=== PATIENT | female | born 1980 | race Caucasian/White ===

== ENCOUNTER → 2018-07-07 12:45 | Outpatient (CLI) | payer OTHER, MEDICAID, SELFPAY ==
--- NOTE | 2018-07-07 | DI.US.S_ITS ---
PROCEDURE: US OB LIMITED INDICATIONS: recheck kidneys OUTSIDE/PRIOR DATING DATA: First dating scan (date and location): None. Estimated date of delivery (BRYCE) from first dating scan: 09/02/18. TECHNIQUE: Real-time scanning was performed of the fetus, with image documentation. Endovaginal scanning: No COMPARISON: None. FINDINGS: A single living intrauterine gestation is present. Presentation: Vertex. Placenta: Placental position is posterior, without previa. Amniotic fluid index: 18.3 cm, normal range is 5-24 cm. heart rate: 135 beats per minute. Maternal cervical canal: 4.6 cm long. Normal lower limit is 2.5 cm. Estimated gestational age from initial scan: 31 weeks 6 days Mild bilateral renal pyelectasis measuring up to 7 mm on the right and 6 mm on the left. IMPRESSION: 1. Single living intrauterine with age estimated at 31 weeks 6 days by prior ultrasound. 2. Mild bilateral renal pyelectasis. Followup recommended. Dictated by: Juice SALINAS Interpreted: Millie Pop MD on 07/07/2018 at 16:49 Approved by: Miguelangel Pillai M.D. on 07/07/2018 at 17:10
== END ==
PROVIDERS: Visit Provider Midwife
DX: Z36.89 Encounter for other specified antenatal screening (principal); Z3A.31 31 weeks gestation of pregnancy
CPT/HCPCS: 76815